=== PATIENT | female | born 1990 | race Caucasian/White ===

== ENCOUNTER 2018-01-15 10:58 | Outpatient (CLI) | payer OTHER | END 2018-01-15 11:06 | disposition home or self-care (01) | LOC: SONOGRAMA 10:58 | DX: N84.0 Polyp of corpus uteri (principal); R10.2 Pelvic and perineal pain; N83.201 Unspecified ovarian cyst, right side ==

== ENCOUNTER 2020-04-22 05:35 | Day surgery (SDC) | payer OTHER ==
[2020-04-22] MEDS ORDERED: MORGIDOX100 MG PO (12:20)
[2020-04-22] MEDS ORDERED: Tylenol #3 PO (12:20)
== END 2020-04-22 14:40 | disposition home or self-care (01) ==
LOC: CIR.AMB 05:35
PROVIDERS: ATTEND Obstetrics & Gynecology
DX: N84.0 Polyp of corpus uteri (principal); D25.0 Submucous leiomyoma of uterus; Z20.828 Contact with and (suspected) exposure to other viral communicable diseases